=== PATIENT | female | born 1930 | race Caucasian/White ===

== ENCOUNTER → 2016-05-05 | Outpatient (REF) ==
[~2016-05-05] MED LIST: ASPI1TAB PO; ATEN25TA PO; BUSP5TA PO; CALC1TAB30 PO; LOPE2TAB3 PO; MELO15TA4 PO; PRESCAP4 PO; SERT-141 PO; VALI5TAB PO; VESI10TA PO
[2016-05-05 10:58] LABS: MEAN CORPUSCULAR HEMOGLOBIN 28.6 pg (27.0-33.0); MEAN CORPUSCULAR HGB CONC 32.9 g/dl (32.0-36.5); RED CELL DISTRIBUTION WIDTH 13.5 % (11.5-14.5); WHITE BLOOD COUNT 6.5 K/mm3 (4.0-10.0)
[2016-05-05 11:21] LABS: ALBUMIN 3.5 GM/DL (3.2-5.2); ALBUMIN/GLOBULIN RATIO 1.03 (1.00-1.93); BILIRUBIN,TOTAL 0.5 MG/DL (0.2-1.0); CALCIUM LEVEL 8.6 MG/DL (8.8-10.2); CREATININE FOR GFR 1.34 MG/DL (0.55-1.02); POTASSIUM SERUM 4.4 MEQ/L (3.5-5.1); TOTAL PROTEIN 6.9 GM/DL (6.4-8.2)
== END ==
PROVIDERS: ATTEND Internal Medicine
DX: I10 Essential (primary) hypertension (principal); Z86.73 Personal history of transient ischemic attack (TIA), and cerebral infarction without residual deficits

== ENCOUNTER → 2016-08-04 | Outpatient (REF) ==
[~2016-08-04] MED LIST changes: -SERT-141 PO; +SERT50TA PO
[2016-08-04 10:08] LABS: MEAN CORPUSCULAR HEMOGLOBIN 29.3 pg (27.0-33.0); MEAN CORPUSCULAR HGB CONC 33.2 g/dl (32.0-36.5); MEAN CORPUSCULAR VOLUME 88.1 fl (80.0-96.0); WHITE BLOOD COUNT 6.6 K/mm3 (4.0-10.0)
[2016-08-04 10:22] LABS: ALBUMIN 3.6 GM/DL (3.2-5.2); ALBUMIN/GLOBULIN RATIO 1.06 (1.00-1.93); BILIRUBIN,TOTAL 0.4 MG/DL (0.2-1.0); CALCIUM LEVEL 8.5 MG/DL (8.8-10.2); CREATININE FOR GFR 1.27 MG/DL (0.55-1.02); GLOMERULAR FILTRATION RATE 42.6 (>32); POTASSIUM SERUM 4.1 MEQ/L (3.5-5.1)
== END ==
PROVIDERS: ATTEND Internal Medicine
DX: I10 Essential (primary) hypertension (principal); Z86.73 Personal history of transient ischemic attack (TIA), and cerebral infarction without residual deficits

== ENCOUNTER → 2016-11-03 | Outpatient (REF) ==
[~2016-11-03] MED LIST changes: +DONE5TAB17 PO; +FURO20TA2 PO; +GABA-282 PO; +KLOR1CAP2 PO; +OMEP20CA3 PO; +ONDA4TAB5 PO; +ROPI0.25 PO; -VESI10TA PO; +VESI10TA2 PO
[2016-11-03 10:30] LABS: MEAN CORPUSCULAR HEMOGLOBIN 29.2 pg (27.0-33.0); MEAN CORPUSCULAR HGB CONC 33.5 g/dl (32.0-36.5); MEAN CORPUSCULAR VOLUME 86.9 fl (80.0-96.0); RED CELL DISTRIBUTION WIDTH 13.6 % (11.5-14.5); WHITE BLOOD COUNT 6.6 K/mm3 (4.0-10.0)
[2016-11-03 10:49] LABS: ALBUMIN 3.2 GM/DL (3.2-5.2); ALBUMIN/GLOBULIN RATIO 0.97 (1.00-1.93); BILIRUBIN,TOTAL 0.5 MG/DL (0.2-1.0); CALCIUM LEVEL 8.6 MG/DL (8.8-10.2); CREATININE FOR GFR 1.25 MG/DL (0.55-1.02); GLOMERULAR FILTRATION RATE 43.4 (>32); POTASSIUM SERUM 3.8 MEQ/L (3.5-5.1); TOTAL PROTEIN 6.5 GM/DL (6.4-8.2)
== END ==
PROVIDERS: ATTEND Internal Medicine
DX: I10 Essential (primary) hypertension (principal)

== ENCOUNTER → 2016-12-14 | Outpatient (REF) ==
[2016-12-14 10:59] LABS: MEAN CORPUSCULAR HEMOGLOBIN 29.2 pg (27.0-33.0); MEAN CORPUSCULAR VOLUME 88.5 fl (80.0-96.0); RED CELL DISTRIBUTION WIDTH 14.1 % (11.5-14.5); WHITE BLOOD COUNT 7.5 K/mm3 (4.0-10.0)
[2016-12-14 11:20] LABS: CREATININE FOR GFR 1.1 MG/DL (0.55-1.02); GLOMERULAR FILTRATION RATE 50.3 (>32)
--- NOTE | 2016-12-14 12:19 | REP ---
Clinical: Preoperative assessment . Comparison: 07/04/2015 . Findings: The mediastinum and cardiac silhouette are stable and within normal limits for portable technique. Mild cardiomegaly cannot be excluded. The airway is patent and midline. The lung contreras are clear without acute consolidation, effusion, or pneumothorax. Skeletal structures are intact. Impression: No acute cardiopulmonary process appreciated. Signed by Lokesh Shi MD 12/14/2016 12:10 P
== END ==
PROVIDERS: ATTEND Internal Medicine
DX: I10 Essential (primary) hypertension (principal); N18.9 Chronic kidney disease, unspecified

== ENCOUNTER 2017-01-06 12:18 | Day surgery (SDC) | payer MEDICARE ==
--- NOTE | 2017-01-05 11:22 | CR ---
DATE OF SERVICE: 01/05/2017 Patient will be undergoing cataract surgery by Dr. Rosas on 01/06/2017, as thus here for preoperative clearance. She is a resident at the [facility] on the fourth floor at [facility]. The patient does have a history of chronic congestive heart failure which is diastolic. She has been stable on Lasix. She has been euvolemic. Chronic kidney disease also stable. Normal GFR is 41. She has mild dementia without any behavioral symptoms. However, she is able to understand questions well and able to answer questions appropriately. She has episodes where she has some confusion periodically but has been stable with this for some time now. Hypertensive cardiovascular, peripheral vascular disease, spinal stenosis pretty much confined to a wheelchair. And also a cataracts. Please refer to Dr. Rosas's consultation on this patient. PAST MEDICAL HISTORY: Significant for: Chronic diastolic heart failure. Massive dementia. Spinal stenosis. Hypertensive cardiovascular disease. Hypertensive retinopathy. Pulmonary vascular disease (PVD). Morbid obesity. Asthma. Allergic rhinitis Gastroesophageal reflux disease. Chronic kidney disease stage III. History of depression in the past as well. PAST SURGICAL HISTORY: None recently. MEDICATIONS THAT THE PATIENT IS ON INCLUDE THE FOLLOWING: - aspirin 81 mg a day - calcium with vitamin D - gabapentin 300 mg twice a day - artificial tears - Symbicort 80/4.5 - Requip she gets 0.25 mg at bedtime for restless leg - Aricept 5 mg a day - furosemide 20 mg twice a day - Zoloft 25 mg - omeprazole 20 mg a day - Colace 100 mg twice a day - She does have lidocaine topically for her spinal stenosis. ALLERGIES: She has no known drug allergies. SOCIAL HISTORY: She is a resident at [facility]. Negative for smoking. Negative alcohol use. REVIEW OF SYSTEMS: She denies any fever or chills. Denies any chest pain or shortness of breath and that is all I am able to get from her. PHYSICAL EXAMINATION: She does not appear to be in any acute distress. Her vital signs have been stable. Blood pressure 138/70. She has been afebrile. Pulse 72, respiratory rate 18. Current weight 222.6 pounds. Head is normocephalic, atraumatic. Sclerae nonicteric. Throat is without any erythema or exudate. Neck is without any JVD, thyromegaly, adenopathy or carotid bruits. Heart: S1-S2 regular without any evidence of any ectopy. No rubs or gallops. Lungs: Sounds are clear to auscultation without any wheezing, rales or rhonchi. Abdomen is nondistended. Bowel sounds present in all four quadrants. No hepatic or splenic enlargement or pulsatile masses. Extremities: Without significant pretibial, ankle or pedal edema. Neurological exam: As far as gait is concerned, we did not test gait. The patient is confined to a wheelchair. She is alert to person and place, not to time today. LABS: White cell count 7.5, hemoglobin 12.9, hematocrit 39.2, platelet count 361,000, that was on 12/14/2016. BUN was 16, creatinine is 1.10. Sodium 143, potassium 4.0. Chest x-ray showed no acute cardiopulmonary disease process. EKG showed sinus rhythm with right bundle branch block, and no comparison EKG from recently in the past year. IMPRESSION: 86-year-old female to undergo cataract surgery by Dr. Rosas on 01/06/2017. The patient is medically optimized to undergo this procedure. She is not on any anticoagulants other than aspirin. Has not had a history of deep venous thrombosis (DVT). She will take her gabapentin the morning of surgery for her spinal stenosis and neuropathy. Will take her Symbicort the morning of surgery. Lasix will be held the morning of surgery. Can take her Zoloft the morning of surgery, omeprazole the morning of surgery. All other medications can be held until after she returns to the [facility]. Other medical problems have been stable on this patient. Please see her past medical history up above. edited: 01/06/2016 1120 tkf
[~2017-01-06] VITALS: Ht 160 cm; Wt 95.3 kg
[~2017-01-06 12:18] MED LIST changes: +ACETAMINOPHEN 325 MG TAB PO PRN; +OFLOXACIN 0.3 % (OCUFLOX) OPTH SOL 5ML OS ONE; +PHENYLEPHRINE 2.5% OPHTH SOL 2ML OS ONE; +PROPARACAINE 0.5% OPHTH SOL 15ML OS ONE; +TROPICAMIDE 1% OPHTH SOLN 2ML OS ONE
[2017-01-06] MEDS ORDERED: LR 1,000 ML IV ONE (13:00)
[2017-01-06] MEDS ORDERED: TRIMETHOBENZAMIDE 300 MG CAP PO PRN (13:00)
[2017-01-06] MEDS ORDERED: fentaNYL 100 MCG/2 ML INJECTION (J3010) As Ordered ONE (13:44)
[2017-01-06] MEDS ORDERED: MIDAZOLAM INJ 2 MG/2 ML VIAL (J2250) As Ordered ONE (13:44)
[2017-01-06] MEDS ORDERED: DUOVISC (0.50ML VISCOAT/0.55ML PROVISC) OPHTH KIT As Ordered ONE (13:56)
[2017-01-06] MEDS ORDERED: BALANCED SALT IRRIGATION SOLUTION 500ML BAG (FOR OR EYE MACHINE) As Ordered ONE (13:56)
[2017-01-06] MEDS ORDERED: ACETYLCHOLINE OPHTH SOLN 1% 2ML (MIOCHOL-E) As Ordered ONE (13:56)
[2017-01-06] MEDS ORDERED: LIDOCAINE 0.75%/EPINEPHRINE 0.025% IN BSS 1ML SYR INTRACAMERAL (OR ONLY) As Ordered ONE (13:56)
[2017-01-06] MEDS ORDERED: POVIDONE-IODINE 5% OPHTH PREP SOL 30ML As Ordered ONE (13:56)
[2017-01-06 15:30] VITALS: BP 164/76
--- NOTE | 2017-01-07 09:43 | RO ---
DATE OF PROCEDURE: 01/09/2017 PREOPERATIVE DIAGNOSIS: Visually significant nuclear sclerotic cataract left eye. POSTOPERATIVE DIAGNOSIS: Visually significant nuclear sclerotic cataract left eye. PROCEDURE: Cataract extraction with use of phacoemulsification, and placement of intraocular lens, AU00T0 24.5D, left eye. SURGEON: Dewey Rosas DO RESEARCH GENETICIST: ANESTHESIA: Local with monitored anesthesia care (MAC). COMPLICATIONS: None. POSTOPERATIVE CONDITION: Stable. INDICATION FOR SURGERY: Blurred vision left eye affecting patient's activities of daily living. DESCRIPTION OF PROCEDURE: The patient was seen in the preoperative area and properly identified. The correct operative eye was identified and marked. Attention was turned to that eye. The patient received topical antibiotics in the preoperative area. The patient then received topical dilating drops consisting of Tropicamide and Phenylephrine. The patient was then transferred to the operating room. The correct side was re-identified. The patient received topical anesthetics and antibiotics on the surface of the eye. The eye was prepped and draped in a sterile fashion. The upper and lower eyelids were isolated with Tegaderm tape, and the lids were held open with an adjustable speculum. Using a sideport blade, a 1.0mm paracentesis incision was made. Intraocular preservative-free lidocaine was then injected into the anterior chamber. Viscoelastic was then injected into the anterior chamber through the paracentesis. Using a 2.4 mm sharp-tipped keratome, the anterior chamber was entered via a temporal clear corneal incision. A continuous curvilinear capsulorrhexis was created with the aid of a 26g cystotome and Utrata forceps. Hydrodissection was performed with balanced salt solution (BSS) on a blunt cannula until the nucleus was freely mobile. The crystalline lens was phacoemulsified and aspirated. Additional cohesive viscoelastic was placed into the capsular bag to deepen it. An AU00T0 24.5D was placed into the capsular bag and confirmed by visualizing the continuous curvilinear capsulorrhexis. Additional irrigation and aspiration was used to remove cortical material and remaining viscoelastic. The clear corneal incision was hydrated with BSS on a blunt cannula. The lens was well positioned. The incisions were then tested for leaks and found to be negative. The eye was then palpated for appropriate pressure and adjusted accordingly with BSS. The eyelid speculum was carefully removed. A shield was placed. The patient tolerated the procedure well and was discharged to the recovery unit in a stable condition. GIL
== END 2017-01-06 15:34 | disposition home or self-care (01) ==
LOC: M SDC 12:18
PROVIDERS: ATTEND Ophthalmology
DX: H25.12 Age-related nuclear cataract, left eye (principal); I50.30 Unspecified diastolic (congestive) heart failure; F03.90 Unspecified dementia, unspecified severity, without behavioral disturbance, psychotic disturbance, mood disturbance, and anxiety; M48.00 Spinal stenosis, site unspecified; I13.0 Hypertensive heart and chronic kidney disease with heart failure and stage 1 through stage 4 chronic kidney disease, or unspecified chronic kidney disease; H35.039 Hypertensive retinopathy, unspecified eye; E66.01 Morbid (severe) obesity due to excess calories; J45.909 Unspecified asthma, uncomplicated; J30.9 Allergic rhinitis, unspecified; K21.9 Gastro-esophageal reflux disease without esophagitis; N18.3 Chronic kidney disease, stage 3 (moderate); G25.81 Restless legs syndrome; M12.9 Arthropathy, unspecified; R60.0 Localized edema; R29.898 Other symptoms and signs involving the musculoskeletal system; R41.9 Unspecified symptoms and signs involving cognitive functions and awareness; F32.9 Major depressive disorder, single episode, unspecified; I69.998 Other sequelae following unspecified cerebrovascular disease; R06.83 Snoring; G47.33 Obstructive sleep apnea (adult) (pediatric); Z79.899 Other long term (current) drug therapy; Z79.82 Long term (current) use of aspirin; Z90.710 Acquired absence of both cervix and uterus; Z85.828 Personal history of other malignant neoplasm of skin; Z78.0 Asymptomatic menopausal state
CPT/HCPCS: 66984; J2250; J3010; V2632

== ENCOUNTER → 2017-01-16 | Outpatient (REF) | payer MEDICARE ==
[~2017-01-16] MED LIST changes: -ACETAMINOPHEN 325 MG TAB PO PRN; -OFLOXACIN 0.3 % (OCUFLOX) OPTH SOL 5ML OS ONE; -PHENYLEPHRINE 2.5% OPHTH SOL 2ML OS ONE; -PROPARACAINE 0.5% OPHTH SOL 15ML OS ONE; -TROPICAMIDE 1% OPHTH SOLN 2ML OS ONE
== END ==
PROVIDERS: ATTEND Nurse Practitioner Adult Health
DX: R05 Cough (principal); R50.9 Fever, unspecified

== ENCOUNTER → 2017-01-17 | Outpatient (REF) | payer MEDICARE ==
[2017-01-17 13:10] LABS: BASO % 0.5 % (0.0-1.0); EOS # 0.2 10^3/uL (0.0-0.50); EOS % 2.8 % (0.0-3.0); IMMATURE GRANULOCYTE % 0.3 % (0-0); MEAN CORPUSCULAR HEMOGLOBIN 29.1 pg (27.0-33.0); MEAN CORPUSCULAR HGB CONC 32.5 g/dl (32.0-36.5); MEAN CORPUSCULAR VOLUME 89.6 fl (80.0-96.0); MONO # 0.6 10^3/uL (0.0-0.8); NEUTROPHILS # 4.6 10^3/uL (1.8-7.7); NEUTROPHILS % 72.4 % (36.0-66.0); PLATELET COUNT, AUTOMATED 241 10^3/uL (150-450); RED CELL DISTRIBUTION WIDTH 14.6 % (11.5-14.5); WHITE BLOOD COUNT 6.4 10^3/uL (4.0-10.0)
--- NOTE | 2017-01-17 13:22 | REP ---
CHEST: Single view of the chest is performed and compared with prior study of 12/14/2016. There is cardiomegaly again noted. There is pulmonary venous hypertension without evidence of acute infiltrate. Mediastinal silhouette is unchanged with some tortuosity of the thoracic aorta. IMPRESSION: Cardiomegaly. No acute infiltrate. Signed by Anatoliy Camargo MD 01/18/2017 07:53 P
[2017-01-17 13:39] LABS: CALCIUM LEVEL 8.6 MG/DL (8.8-10.2); CREATININE FOR GFR 1.16 MG/DL (0.55-1.02); GLOMERULAR FILTRATION RATE 47.2 (>32); POTASSIUM SERUM 3.9 MEQ/L (3.5-5.1)
== END ==
PROVIDERS: ATTEND Internal Medicine
DX: R50.9 Fever, unspecified (principal); R05 Cough

== ENCOUNTER 2017-01-27 09:34 | Day surgery (SDC) | payer MEDICARE ==
[~2017-01-27] VITALS: Ht 154.9 cm; Wt 98.9 kg
[~2017-01-27 09:34] MED LIST changes: +ACETAMINOPHEN 325 MG TAB PO PRN; +OFLOXACIN 0.3 % (OCUFLOX) OPTH SOL 5ML OD ONE; +PHENYLEPHRINE 2.5% OPHTH SOL 2ML OD ONE; +PROPARACAINE 0.5% OPHTH SOL 15ML OD ONE; +TROPICAMIDE 1% OPHTH SOLN 2ML OD ONE
[2017-01-27] MEDS ORDERED: fentaNYL 100 MCG/2 ML INJECTION (J3010) As Ordered ONE (09:41)
[2017-01-27] MEDS ORDERED: MIDAZOLAM INJ 2 MG/2 ML VIAL (J2250) As Ordered ONE (09:41)
[2017-01-27] MEDS ORDERED: DUOVISC (0.50ML VISCOAT/0.55ML PROVISC) OPHTH KIT As Ordered ONE (09:57)
[2017-01-27] MEDS ORDERED: LIDOCAINE 0.75%/EPINEPHRINE 0.025% IN BSS 1ML SYR INTRACAMERAL (OR ONLY) As Ordered ONE (09:58)
[2017-01-27] MEDS ORDERED: BALANCED SALT IRRIGATION SOL 500ML GLASS BOTTLE (FOR OR EYE COMPOUND) As Ordered ONE (09:58)
[2017-01-27] MEDS ORDERED: ACETYLCHOLINE OPHTH SOLN 1% 2ML (MIOCHOL-E) As Ordered ONE (09:58)
[2017-01-27] MEDS ORDERED: POVIDONE-IODINE 5% OPHTH PREP SOL 30ML As Ordered ONE (09:58)
[2017-01-27 11:05] VITALS: BP 115/73
[2017-01-27] MEDS ORDERED: ACETAMINOPHEN 325 MG TAB As Ordered ONE (11:26)
[2017-01-27] MEDS ORDERED: TRIMETHOBENZAMIDE 300 MG CAP PO PRN (11:30)
--- NOTE | 2017-01-31 18:38 | RO ---
DATE OF PROCEDURE: 01/27/2017 PREOPERATIVE DIAGNOSIS: Visually significant nuclear sclerotic cataract right eye. POSTOPERATIVE DIAGNOSIS: Visually significant nuclear sclerotic cataract right eye. PROCEDURE: Cataract extraction with use of phacoemulsification and placement of intraocular lens, AU00T0, 24.0, right eye. SURGEON: Dewey Rosas DO WEIGHT RECORDER: ANESTHESIA: Local with monitored anesthesia care (MAC). COMPLICATIONS: None. POSTOPERATIVE CONDITION: Stable. INDICATION FOR SURGERY: Blurred vision right eye affecting patient's activities of daily living. DESCRIPTION OF PROCEDURE: The patient was seen in the preoperative area and properly identified. The correct operative eye was identified and marked. Attention was turned to that eye. The patient received topical antibiotics in the preoperative area. The patient then received topical dilating drops consisting of tropicamide and phenylephrine. The patient was then transferred to the operating room. The correct side was re-identified. The patient received topical anesthetics and antibiotics on the surface of the eye. The eye was prepped and draped in a sterile fashion. The upper and lower eyelids were isolated with Tegaderm tape, and the lids were held open with an adjustable speculum. Using a sideport blade, a paracentesis incision was made. Intraocular preservative-free lidocaine was then injected into the anterior chamber. Viscoelastic was then injected into the anterior chamber through the paracentesis. Using a 2.4 mm sharp-tipped keratome, the anterior chamber was entered via a temporal clear corneal incision. A continuous curvilinear capsulorrhexis was created with the aid of a 26-gauge cystotome and Utrata forceps. Hydrodissection was performed with balanced salt solution (BSS) on a blunt cannula until the nucleus was freely mobile. The crystalline lens was phacoemulsified and aspirated. Additional cohesive viscoelastic was placed into the capsular bag to deepen it. An AU00T0, 24.0 lens was placed into the capsular bag and confirmed by visualizing the continuous curvilinear capsulorrhexis. Additional irrigation and aspiration was used to remove cortical material and remaining viscoelastic. The clear corneal incision was hydrated with BSS on a blunt cannula. The lens was well positioned. The incisions were then tested for leaks and found to be negative. The eye was then palpated for appropriate pressure and adjusted accordingly with BSS. The eyelid speculum was carefully removed. A shield was placed. The patient tolerated the procedure well and was discharged to the recovery unit in a stable condition. MTDD
== END 2017-01-27 11:55 | disposition home or self-care (01) ==
LOC: M SDC 09:34
PROVIDERS: ATTEND Ophthalmology
DX: H25.11 Age-related nuclear cataract, right eye (principal); I10 Essential (primary) hypertension; M12.9 Arthropathy, unspecified; R60.0 Localized edema; K21.9 Gastro-esophageal reflux disease without esophagitis; R29.898 Other symptoms and signs involving the musculoskeletal system; F41.9 Anxiety disorder, unspecified; F03.90 Unspecified dementia, unspecified severity, without behavioral disturbance, psychotic disturbance, mood disturbance, and anxiety; F32.9 Major depressive disorder, single episode, unspecified; I69.998 Other sequelae following unspecified cerebrovascular disease; R06.83 Snoring; G47.33 Obstructive sleep apnea (adult) (pediatric); Z88.0 Allergy status to penicillin; Z88.2 Allergy status to sulfonamides; Z79.899 Other long term (current) drug therapy; Z79.82 Long term (current) use of aspirin; Z90.710 Acquired absence of both cervix and uterus; Z78.0 Asymptomatic menopausal state; Z85.828 Personal history of other malignant neoplasm of skin
CPT/HCPCS: 66984; J2250; J3010; V2632

== ENCOUNTER → 2017-05-11 | Outpatient (REF) ==
[2017-05-11 10:12] LABS: HEMATOCRIT 40.7 % (36.0-47.0); HEMOGLOBIN 12.8 g/dl (12.0-16.0); MEAN CORPUSCULAR HEMOGLOBIN 27.5 pg (27.0-33.0); MEAN CORPUSCULAR HGB CONC 31.4 g/dl (32.0-36.5); MEAN CORPUSCULAR VOLUME 87.5 fl (80.0-96.0); PLATELET COUNT, AUTOMATED 275 10^3/uL (150-450); RED BLOOD COUNT 4.65 10^6/uL (4.00-5.40); RED CELL DISTRIBUTION WIDTH 13.8 % (11.5-14.5); WHITE BLOOD COUNT 7.7 10^3/uL (4.0-10.0)
[2017-05-11 10:32] LABS: ALBUMIN 3.5 GM/DL (3.2-5.2); ALBUMIN/GLOBULIN RATIO 1.03 (1.00-1.93); ALKALINE PHOSPHATASE 105 U/L (45-117); ALT/SGPT 16 U/L (12-78); ANION GAP 11 MEQ/L (8-16); AST/SGOT 14 U/L (7-37); BILIRUBIN,TOTAL 0.4 MG/DL (0.2-1.0); BLOOD UREA NITROGEN 16 MG/DL (7-18); CALCIUM LEVEL 8.4 MG/DL (8.8-10.2); CARBON DIOXIDE LEVEL 28 MEQ/L (21-32); CHLORIDE LEVEL 102 MEQ/L (98-107); CREATININE FOR GFR 1.15 MG/DL (0.55-1.30); GLOMERULAR FILTRATION RATE 47.6 (>32); GLUCOSE, FASTING 182 MG/DL (70-100); POTASSIUM SERUM 3.9 MEQ/L (3.5-5.1); SODIUM LEVEL 141 MEQ/L (136-145); TOTAL PROTEIN 6.9 GM/DL (6.4-8.2)
== END ==
DX: I10 Essential (primary) hypertension (principal)

== ENCOUNTER → 2017-08-05 | Outpatient (REF) ==
[2017-08-05 10:01] LABS: HEMATOCRIT 39.8 % (36.0-47.0); HEMOGLOBIN 12.7 g/dl (12.0-15.5); MEAN CORPUSCULAR HEMOGLOBIN 27.9 pg (27.0-33.0); MEAN CORPUSCULAR HGB CONC 31.9 g/dl (32.0-36.5); MEAN CORPUSCULAR VOLUME 87.3 fl (80.0-96.0); PLATELET COUNT, AUTOMATED 279 10^3/uL (150-450); RED BLOOD COUNT 4.56 10^6/uL (4.00-5.40); RED CELL DISTRIBUTION WIDTH 14.6 % (11.5-14.5); WHITE BLOOD COUNT 8.6 10^3/uL (4.0-10.0)
[2017-08-05 10:33] LABS: ALBUMIN 3.4 GM/DL (3.2-5.2); ALBUMIN/GLOBULIN RATIO 0.89 (1.00-1.93); ALKALINE PHOSPHATASE 114 U/L (45-117); ALT/SGPT 19 U/L (12-78); ANION GAP 10 MEQ/L (8-16); AST/SGOT 17 U/L (7-37); BILIRUBIN,TOTAL 0.3 MG/DL (0.2-1.0); BLOOD UREA NITROGEN 22 MG/DL (7-18); CALCIUM LEVEL 8.6 MG/DL (8.8-10.2); CARBON DIOXIDE LEVEL 29 MEQ/L (21-32); CHLORIDE LEVEL 103 MEQ/L (98-107); CREATININE FOR GFR 1.19 MG/DL (0.55-1.30); GLOMERULAR FILTRATION RATE 45.8 (>32); GLUCOSE, FASTING 168 MG/DL (70-100); SODIUM LEVEL 142 MEQ/L (136-145); TOTAL PROTEIN 7.2 GM/DL (6.4-8.2)
== END ==
DX: I10 Essential (primary) hypertension (principal)

== ENCOUNTER → 2017-10-27 | Outpatient (REF) ==
[2017-10-27 13:44] LABS: HEMATOCRIT 41.2 % (36.0-47.0); MEAN CORPUSCULAR HEMOGLOBIN 27.4 pg (27.0-33.0); MEAN CORPUSCULAR HGB CONC 31.6 g/dl (32.0-36.5); MEAN CORPUSCULAR VOLUME 86.9 fl (80.0-96.0); PLATELET COUNT, AUTOMATED 326 10^3/uL (150-450); RED BLOOD COUNT 4.74 10^6/uL (4.00-5.40); RED CELL DISTRIBUTION WIDTH 15.1 % (11.5-14.5); WHITE BLOOD COUNT 8.8 10^3/uL (4.0-10.0)
[2017-10-27 14:43] LABS: ALBUMIN 3.2 GM/DL (3.2-5.2); ALBUMIN/GLOBULIN RATIO 0.86 (1.00-1.93); ALKALINE PHOSPHATASE 108 U/L (45-117); ALT/SGPT 18 U/L (12-78); ANION GAP 8 MEQ/L (8-16); AST/SGOT 18 U/L (7-37); BILIRUBIN,TOTAL 0.4 MG/DL (0.2-1.0); BLOOD UREA NITROGEN 20 MG/DL (7-18); CALCIUM LEVEL 8.6 MG/DL (8.8-10.2); CARBON DIOXIDE LEVEL 30 MEQ/L (21-32); CHLORIDE LEVEL 106 MEQ/L (98-107); CREATININE FOR GFR 1.26 MG/DL (0.55-1.30); GLOMERULAR FILTRATION RATE 42.9 (>32); GLUCOSE, FASTING 98 MG/DL (70-100); POTASSIUM SERUM 4.6 MEQ/L (3.5-5.1); SODIUM LEVEL 144 MEQ/L (136-145); TOTAL PROTEIN 6.9 GM/DL (6.4-8.2)
== END ==
DX: R41.82 Altered mental status, unspecified (principal)

== ENCOUNTER → 2017-10-28 | Outpatient (REF) | DX: R41.82 Altered mental status, unspecified (principal) ==

== ENCOUNTER → 2017-11-11 | Outpatient (REF) ==
[2017-11-11 09:41] LABS: HEMOGLOBIN 12.2 g/dl (12.0-15.5); MEAN CORPUSCULAR HEMOGLOBIN 27.4 pg (27.0-33.0); MEAN CORPUSCULAR HGB CONC 31.3 g/dl (32.0-36.5); MEAN CORPUSCULAR VOLUME 87.4 fl (80.0-96.0); PLATELET COUNT, AUTOMATED 271 10^3/uL (150-450); RED BLOOD COUNT 4.46 10^6/uL (4.00-5.40); WHITE BLOOD COUNT 7.6 10^3/uL (4.0-10.0)
[2017-11-11 10:14] LABS: ALBUMIN 3.2 GM/DL (3.2-5.2); ALBUMIN/GLOBULIN RATIO 0.86 (1.00-1.93); ALKALINE PHOSPHATASE 114 U/L (45-117); ALT/SGPT 20 U/L (12-78); ANION GAP 8 MEQ/L (8-16); AST/SGOT 19 U/L (7-37); BILIRUBIN,TOTAL 0.5 MG/DL (0.2-1.0); BLOOD UREA NITROGEN 16 MG/DL (7-18); CALCIUM LEVEL 8.4 MG/DL (8.8-10.2); CARBON DIOXIDE LEVEL 33 MEQ/L (21-32); CHLORIDE LEVEL 101 MEQ/L (98-107); GLOMERULAR FILTRATION RATE 50.1 (>32); GLUCOSE, FASTING 152 MG/DL (70-100); SODIUM LEVEL 142 MEQ/L (136-145); TOTAL PROTEIN 6.9 GM/DL (6.4-8.2)
[2017-11-11 14:32] LABS: URIC ACID 4.6 MG/DL (2.6-6.0)
== END ==
DX: I63.9 Cerebral infarction, unspecified (principal); I10 Essential (primary) hypertension

== ENCOUNTER → 2018-02-08 | Outpatient (REF) ==
[2018-02-08 09:44] LABS: HEMATOCRIT 38.8 % (36.0-47.0); MEAN CORPUSCULAR HEMOGLOBIN 26.8 pg (27.0-33.0); MEAN CORPUSCULAR HGB CONC 30.9 g/dl (32.0-36.5); MEAN CORPUSCULAR VOLUME 86.8 fl (80.0-96.0); PLATELET COUNT, AUTOMATED 277 10^3/uL (150-450); RED BLOOD COUNT 4.47 10^6/uL (4.00-5.40); WHITE BLOOD COUNT 8.2 10^3/uL (4.0-10.0)
[2018-02-08 10:15] LABS: ALBUMIN/GLOBULIN RATIO 0.88 (1.00-1.93); ALKALINE PHOSPHATASE 115 U/L (45-117); ALT/SGPT 16 U/L (12-78); ANION GAP 12 MEQ/L (8-16); AST/SGOT 21 U/L (7-37); BILIRUBIN,TOTAL 0.3 MG/DL (0.2-1.0); BLOOD UREA NITROGEN 19 MG/DL (7-18); CALCIUM LEVEL 8.5 MG/DL (8.8-10.2); CARBON DIOXIDE LEVEL 27 MEQ/L (21-32); CHLORIDE LEVEL 104 MEQ/L (98-107); CREATININE FOR GFR 1.08 MG/DL (0.55-1.30); GLOMERULAR FILTRATION RATE 51.1 (>32); GLUCOSE, FASTING 133 MG/DL (70-100); POTASSIUM SERUM 4.3 MEQ/L (3.5-5.1); SODIUM LEVEL 143 MEQ/L (136-145); TOTAL PROTEIN 6.4 GM/DL (6.4-8.2)
== END ==
DX: I10 Essential (primary) hypertension (principal); I63.9 Cerebral infarction, unspecified

== ENCOUNTER → 2018-04-21 | Outpatient (REF) ==
[~2018-04-21] MED LIST changes: -ACETAMINOPHEN 325 MG TAB PO PRN; -DONE5TAB17 PO; +DONE5TAB64 PO; -GABA-282 PO; +GABA-843 PO; +MELO15TA28 PO; -MELO15TA4 PO; -OFLOXACIN 0.3 % (OCUFLOX) OPTH SOL 5ML OD ONE; -PHENYLEPHRINE 2.5% OPHTH SOL 2ML OD ONE; -PROPARACAINE 0.5% OPHTH SOL 15ML OD ONE; -ROPI0.25 PO; +ROPI0.253 PO; -TROPICAMIDE 1% OPHTH SOLN 2ML OD ONE
[2018-04-21 12:57] LABS: CALCIUM LEVEL 8.3 MG/DL (8.8-10.2); CREATININE FOR GFR 1.2 MG/DL (0.55-1.30); GLOMERULAR FILTRATION RATE 45.2 (>32); POTASSIUM SERUM 4.5 MEQ/L (3.5-5.1)
== END ==
PROVIDERS: ATTEND Internal Medicine
DX: I50.9 Heart failure, unspecified (principal)

== ENCOUNTER → 2018-04-26 | Outpatient (REF) ==
[2018-04-26 10:26] LABS: CALCIUM LEVEL 8.5 MG/DL (8.8-10.2); CREATININE FOR GFR 1.29 MG/DL (0.55-1.30); GLOMERULAR FILTRATION RATE 41.6 (>32); POTASSIUM SERUM 4.2 MEQ/L (3.5-5.1)
== END ==
PROVIDERS: ATTEND Internal Medicine
DX: I50.9 Heart failure, unspecified (principal)

== ENCOUNTER → 2018-05-03 | Outpatient (REF) | payer MEDICARE, MEDICAID ==
[2018-05-03 09:59] LABS: CALCIUM LEVEL 8.5 MG/DL (8.8-10.2); CREATININE FOR GFR 1.11 MG/DL (0.55-1.30); GLOMERULAR FILTRATION RATE 49.5 (>32); POTASSIUM SERUM 3.9 MEQ/L (3.5-5.1)
== END ==
PROVIDERS: ATTEND Nurse Practitioner Adult Health
DX: I50.9 Heart failure, unspecified (principal)

== ENCOUNTER → 2018-05-10 | Outpatient (REF) | payer MEDICARE, MEDICAID ==
[2018-05-10 08:48] LABS: HEMATOCRIT 36.9 % (36.0-47.0); HEMOGLOBIN 11.5 g/dl (12.0-15.5); MEAN CORPUSCULAR HEMOGLOBIN 26.4 pg (27.0-33.0); MEAN CORPUSCULAR HGB CONC 31.2 g/dl (32.0-36.5); MEAN CORPUSCULAR VOLUME 84.8 fl (80.0-96.0); PLATELET COUNT, AUTOMATED 276 10^3/uL (150-450); RED BLOOD COUNT 4.35 10^6/uL (4.00-5.40); WHITE BLOOD COUNT 7.2 10^3/uL (4.0-10.0)
[2018-05-10 09:07] LABS: ALBUMIN 2.9 GM/DL (3.2-5.2); BILIRUBIN,TOTAL 0.4 MG/DL (0.2-1.0); CALCIUM LEVEL 8.3 MG/DL (8.8-10.2); CREATININE FOR GFR 1.07 MG/DL (0.55-1.30); GLOMERULAR FILTRATION RATE 51.6 (>32); POTASSIUM SERUM 4.2 MEQ/L (3.5-5.1); TOTAL PROTEIN 6.6 GM/DL (6.4-8.2)
== END ==
PROVIDERS: ATTEND Internal Medicine
DX: I50.9 Heart failure, unspecified (principal)

== ENCOUNTER → 2018-05-17 | Outpatient (CLI) | payer MEDICARE, MEDICAID ==
--- NOTE | 2018-05-17 12:51 | REP ---
CT of the left shoulder: Axial images are acquired and a reformatted in sagittal and coronal projections. There is a nondisplaced fracture in the proximal humeral shaft. There is very slight angulation at the fracture site. There is radiodensity at the fracture margin, possibly slight callus formation. There is no glenohumeral dislocation. There is glenohumeral osteoarthritis. There is marked narrowing of the subacromial space compatible with chronic rotator cuff insufficiency. Impression: Nondisplaced slightly angulated fracture of the proximal humeral shaft. Probable slight callus at the fracture margins. Advanced glenohumeral osteoarthritis and rotator cuff insufficiency. Electronically Signed by Anatoliy Lopez MD 05/17/2018 12:42 P
--- NOTE | 2018-05-17 12:52 | REP ---
CT of the left humerus: Axial images are acquired helical scanning and a reformatted in sagittal and coronal projections. There correlated with the CT of the left shoulder performed this same date. There is a nondisplaced slightly angulated fracture of the proximal humeral shaft. There is slight radiodensity of the fracture margins compatible with slight callus. There is advanced osteoarthritis of the glenohumeral joint. There is marked narrowing of the subacromial space compatible with chronic rotator cuff insufficiency. Electronically Signed by Anatoliy Lopez MD 05/17/2018 12:43 P
== END ==
LOC: M RAD 11:24
PROVIDERS: ATTEND Nurse Practitioner Adult Health
DX: S42.202A Unspecified fracture of upper end of left humerus, initial encounter for closed fracture (principal); X58.XXXA Exposure to other specified factors, initial encounter; Y92.9 Unspecified place or not applicable; M19.012 Primary osteoarthritis, left shoulder

== ENCOUNTER → 2018-05-25 | Outpatient (REF) | payer MEDICARE, MEDICAID ==
[2018-05-25 12:27] LABS: HEMATOCRIT 37.5 % (36.0-47.0); HEMOGLOBIN 11.6 g/dl (12.0-15.5); MEAN CORPUSCULAR HGB CONC 30.9 g/dl (32.0-36.5); MEAN CORPUSCULAR VOLUME 83.9 fl (80.0-96.0); PLATELET COUNT, AUTOMATED 341 10^3/uL (150-450); RED BLOOD COUNT 4.47 10^6/uL (4.00-5.40); WHITE BLOOD COUNT 14.3 10^3/uL (4.0-10.0)
[2018-05-25 12:54] LABS: ALBUMIN 2.9 GM/DL (3.2-5.2); BILIRUBIN,TOTAL 0.5 MG/DL (0.2-1.0); CALCIUM LEVEL 8.3 MG/DL (8.8-10.2); CREATININE FOR GFR 1.28 MG/DL (0.55-1.30); POTASSIUM SERUM 4.2 MEQ/L (3.5-5.1); TOTAL PROTEIN 6.6 GM/DL (6.4-8.2)
[2018-05-26 10:57] LABS: APPEARANCE, URINE HAZY (CLEAR); BACTERIA, URINE AUTO 3+ (NEGATIVE); BILIRUBIN, URINE AUTO NEGATIVE (NEGATIVE); BLOOD, URINE BLOOD NEGATIVE (NEGATIVE); COLOR, URINE YELLOW (YELLOW); GLUCOSE, URINE (UA) AUTO NEGATIVE (NEGATIVE); KETONE, URINE AUTO NEGATIVE (NEGATIVE); LEUKOCYTE ESTERASE, URINE AUTO TRACE (NEGATIVE); MUCUS, URINE SMALL (NEGATIVE); NITRITE, URINE AUTO POSITIVE (NEGATIVE); PROTEIN, URINE AUTO NEGATIVE (NEGATIVE); RBC, URINE AUTO 1 /HPF (0-3); SPECIFIC GRAVITY URINE AUTO 1.013 (1.002-1.035); SQUAMOUS EPITHELIAL CELL UR AU 5 /HPF (0-6); UROBILINOGEN, URINE AUTO 0.2 mg/dL (0.0-2.0); WBC, URINE AUTO 2 /HPF (0-3)
== END ==
PROVIDERS: ATTEND Internal Medicine
DX: R41.82 Altered mental status, unspecified (principal)

== ENCOUNTER → 2018-05-26 | Outpatient (REF) | payer MEDICARE, MEDICAID ==
--- NOTE | 2018-05-26 13:49 | REP ---
AP SITTING UPRIGHT VIEW OF THE CHEST: This study is compared to that of 12/14/2016. There is cardiac enlargement. The aorta is slightly tortuous. The lungs, diaphragms, and bony thorax are unremarkable, except for superior displacement of the humeral heads with some flattening. IMPRESSION: No acute cardiopulmonary disease, except for cardiomegaly, unchanged. The findings at the shoulders is consistent with chronic rotator cuff tear. Electronically Signed by Santana Ross MD 05/26/2018 02:09 P
== END ==
PROVIDERS: ATTEND Internal Medicine
DX: R41.82 Altered mental status, unspecified (principal); I51.7 Cardiomegaly

== ENCOUNTER → 2018-05-29 | Outpatient (REF) | payer MEDICARE, MEDICAID ==
[2018-05-29 08:50] LABS: CALCIUM LEVEL 7.9 MG/DL (8.8-10.2); CREATININE FOR GFR 0.97 MG/DL (0.55-1.30); GLOMERULAR FILTRATION RATE 57.8 (>32)
== END ==
PROVIDERS: ATTEND Nurse Practitioner Adult Health
DX: N39.0 Urinary tract infection, site not specified (principal)

== ENCOUNTER → 2018-06-26 | Outpatient (REF) | payer MEDICARE, MEDICAID ==
[2018-06-26 14:10] LABS: BASO % 0.4 % (0.0-1.0); EOS # 0.3 10^3/uL (0.0-0.50); EOS % 3.2 % (0.0-3.0); HEMATOCRIT 39.4 % (36.0-47.0); HEMOGLOBIN 12.4 g/dl (12.0-15.5); LYMPH # 1.5 10^3/uL (1.5-4.5); LYMPH % 18.7 % (24.0-44.0); MEAN CORPUSCULAR HEMOGLOBIN 25.6 pg (27.0-33.0); MEAN CORPUSCULAR HGB CONC 31.5 g/dl (32.0-36.5); MEAN CORPUSCULAR VOLUME 81.2 fl (80.0-96.0); MONO # 0.5 10^3/uL (0.0-0.8); MONO % 6.8 % (0.0-5.0); NEUTROPHILS # 5.6 10^3/uL (1.8-7.7); NEUTROPHILS % 70.6 % (36.0-66.0); PLATELET COUNT, AUTOMATED 342 10^3/uL (150-450); RED BLOOD COUNT 4.85 10^6/uL (4.00-5.40); WHITE BLOOD COUNT 7.9 10^3/uL (4.0-10.0)
[2018-06-26 14:16] LABS: APPEARANCE, URINE HAZY (CLEAR); BACTERIA, URINE AUTO 3+ (NEGATIVE); BILIRUBIN, URINE AUTO NEGATIVE (NEGATIVE); BLOOD, URINE BLOOD NEGATIVE (NEGATIVE); COLOR, URINE YELLOW (YELLOW); GLUCOSE, URINE (UA) AUTO NEGATIVE (NEGATIVE); KETONE, URINE AUTO NEGATIVE (NEGATIVE); LEUKOCYTE ESTERASE, URINE AUTO TRACE (NEGATIVE); MUCUS, URINE SMALL (NEGATIVE); NITRITE, URINE AUTO POSITIVE (NEGATIVE); PROTEIN, URINE AUTO NEGATIVE (NEGATIVE); RBC, URINE AUTO 0 /HPF (0-3); SPECIFIC GRAVITY URINE AUTO 1.013 (1.002-1.035); SQUAMOUS EPITHELIAL CELL UR AU 4 /HPF (0-6); UROBILINOGEN, URINE AUTO 0.2 mg/dL (0.0-2.0); WBC, URINE AUTO 3 /HPF (0-3)
[2018-06-26 14:55] LABS: ALBUMIN 2.8 GM/DL (3.2-5.2); BILIRUBIN,TOTAL 0.3 MG/DL (0.2-1.0); CALCIUM LEVEL 9.1 MG/DL (8.8-10.2); CREATININE FOR GFR 1.07 MG/DL (0.55-1.30); GLOMERULAR FILTRATION RATE 51.6 (>32); THYROID STIMULATING HORMONE 0.071 uIU/ML (0.358-3.740); TOTAL PROTEIN 7.4 GM/DL (6.4-8.2)
[2018-06-27 13:51] LABS: FREE T3 2.4 PG/ML (2.2-4.0); FREE T4 1.34 NG/DL (0.76-1.46)
== END ==
PROVIDERS: ATTEND Internal Medicine
DX: R41.82 Altered mental status, unspecified (principal)

== ENCOUNTER → 2018-07-18 | Outpatient (REF) | payer MEDICARE, MEDICAID ==
[~2018-07-18] MED LIST changes: -ASPI1TAB PO; +ASPI81TA26 PO; +SERT-141 PO; -SERT50TA PO
== END ==
PROVIDERS: ATTEND Internal Medicine
DX: K14.0 Glossitis (principal)

== ENCOUNTER → 2018-08-09 | Outpatient (REF) | payer MEDICARE, MEDICAID ==
[2018-08-09 09:12] LABS: HEMATOCRIT 37.7 % (36.0-47.0); HEMOGLOBIN 11.9 g/dl (12.0-15.5); MEAN CORPUSCULAR HEMOGLOBIN 26.2 pg (27.0-33.0); MEAN CORPUSCULAR HGB CONC 31.6 g/dl (32.0-36.5); MEAN CORPUSCULAR VOLUME 82.9 fl (80.0-96.0); PLATELET COUNT, AUTOMATED 387 10^3/uL (150-450); RED BLOOD COUNT 4.55 10^6/uL (4.00-5.40); WHITE BLOOD COUNT 8.1 10^3/uL (4.0-10.0)
[2018-08-09 09:37] LABS: BILIRUBIN,TOTAL 0.4 MG/DL (0.2-1.0); CALCIUM LEVEL 8.7 MG/DL (8.8-10.2); CREATININE FOR GFR 1.14 MG/DL (0.55-1.30); POTASSIUM SERUM 3.6 MEQ/L (3.5-5.1); TOTAL PROTEIN 6.7 GM/DL (6.4-8.2)
== END ==
PROVIDERS: ATTEND Internal Medicine
DX: I10 Essential (primary) hypertension (principal)

== ENCOUNTER → 2018-08-31 | Outpatient (REF) | payer MEDICARE, MEDICAID ==
--- NOTE | 2018-08-31 16:17 | REP ---
Left forearm: Two views obtained portably. History: Pain with limited range of motion. Findings: Two views of the left forearm are presented. There is diffuse osteopenia. No fracture or subluxation is seen. No definite joint effusion. Impression: Diffuse osteopenia. No acute bony abnormality noted. Electronically Signed by Rodrigo Ames MD 08/31/2018 04:27 P
== END ==
PROVIDERS: ATTEND Internal Medicine
DX: M85.80 Other specified disorders of bone density and structure, unspecified site (principal)

== ENCOUNTER → 2018-09-20 | Outpatient (REF) | payer MEDICARE, MEDICAID | PROVIDERS: ATTEND Internal Medicine | DX: S31.102A Unspecified open wound of abdominal wall, epigastric region without penetration into peritoneal cavity, initial encounter (principal); Y92.89 Other specified places as the place of occurrence of the external cause; Y93.89 Activity, other specified; Y99.8 Other external cause status; X58.XXXA Exposure to other specified factors, initial encounter ==

== ENCOUNTER → 2018-09-22 | Outpatient (CLI) | payer MEDICARE, MEDICAID ==
[~2018-09-22] MED LIST changes: +ISOVUE-370 76% 100ML VIAL (Q9967) As Ordered ONE
--- NOTE | 2018-09-22 12:26 | REP ---
CT ABDOMEN AND PELVIS WITH IV BUT WITHOUT ORAL CONTRAST: HISTORY: Nonhealing ulcer. Rule out abdominal cancer. No comparison CT study. The patient reports a history of prior cholecystectomy, appendectomy, and hysterectomy. CT CONTRAST DOSE: 100 mL of intravenous Isovue 370. CT FINDINGS: Preliminary digital personnel adviser radiograph shows an unremarkable bowel gas pattern. There are clips in the right upper quadrant. The lung bases demonstrate granulomatous calcifications in the right hilus and a calcified granuloma in the right lower lobe. There is mild, somewhat nodular pleural thickening on the right at several locations. There is no evidence of pleural or pericardial effusion. There is a 2.6 cm nodule in the right paravertebral fat just above the diaphragmatic hiatus. A smaller para-esophageal lymph node is seen 1.7 cm in diameter. There are multiple low-density lesions in the spleen, and two adjacent low density lesions in the liver are seen consistent with metastatic disease. The largest of the two liver lesions measures 4.0 cm in greatest diameter. The largest splenic lesion measures 3.1 cm in greatest diameter. No adrenal mass lesion is observed on either side. No renal masses observed. The kidneys enhance symmetrically. There is some bilateral renal cortical atrophy in the upper poles. The common bile duct is dilated measuring up to 1.7 cm in greatest diameter. The main pancreatic duct is somewhat dilated as well. No pancreatic or duodenal mass lesion is observed. No calculus is appreciated. There is some retroperitoneal lymphadenopathy anterior and along the left lateral border of the aorta. The largest retroperitoneal rosie area measures 3.4 cm in greatest diameter. There is a metastatic pattern in the omental fat and the perigastric fat with multiple nodules. The largest nodule here measures 2.2 cm in greatest diameter. There is some infiltrative disease in the omental fat as well. Nodularity is seen along the peritoneal reflections in the mid abdominal level. There is a large subcutaneous ulcer at the level of the umbilicus adjacent to a ventral hernia. The ventral hernia transmits a small quantity of abdominal fat but no bowel loops. There are periumbilical dermal nodules suggestive of metastatic disease inferior to the umbilical ulcer. There is left colonic diverticulosis without CT evidence of diverticulitis. No definite colonic mass lesion is appreciated. No pelvic mass or adenopathy is seen. Urinary bladder appears intact. There is no evidence of ascites. Bone window settings show degenerative changes in the lumbar spine, arthritic changes in the hips. No bony destructive lesion is seen. IMPRESSION: Findings consistent with fairly widespread metastatic disease with foci involving the liver, spleen, greater omentum, peritoneum, retroperitoneal, periaortic lymph node chain, lower middle mediastinum, paravertebral region. There is dermal nodularity adjacent to an umbilical ulcer which may be malignant as well. There is a ventral hernia transmitting abdominal fat. No clear primary site. Consider chest CT. Ultrasound-guided needle biopsy of the liver should be feasible for histologic sampling if desired. Electronically Signed by Rodrigo Ames MD 09/22/2018 03:33 P
== END ==
LOC: M RAD 11:06
PROVIDERS: ATTEND Nurse Practitioner Adult Health
DX: R91.8 Other nonspecific abnormal finding of lung field (principal); R91.1 Solitary pulmonary nodule; D73.89 Other diseases of spleen
CPT/HCPCS: 74177; Q9967

== ENCOUNTER → 2018-09-25 | Outpatient (REF) | payer MEDICARE, MEDICAID ==
[~2018-09-25] MED LIST changes: -ISOVUE-370 76% 100ML VIAL (Q9967) As Ordered ONE
--- NOTE | 2018-09-25 17:16 | REP ---
Clinical: Arm pain with decreased range of motion. Technique: Two neutral views of the left shoulder. Findings: There is a fracture involving the proximal humeral shaft with subtle surrounding callus formation and periosteal reaction. An underlying pathologic lesion as a cause of fracture cannot be excluded. There appears to be a somewhat heterogeneous lytic area involving the visualized portion of the distal humerus which is incompletely evaluated and second pathologic lesion cannot be excluded. Underlying osteopenia and arthritic changes to the acromioclavicular and glenohumeral joint noted. Impression: 1. Suspected pathologic fracture of the proximal humeral diaphysis with periosteal reaction/callous formation. 2. Incomplete evaluation of the distal humerus suggesting possible second irregular pathologic lesion. Electronically Signed by Lokesh Shi MD 09/25/2018 05:07 P
== END ==
PROVIDERS: ATTEND Nurse Practitioner Adult Health
DX: M25.511 Pain in right shoulder (principal)